=== PATIENT | female | born 1995 | race Caucasian/White ===

== ENCOUNTER → 2021-02-02 15:30 | Outpatient (CLI) | payer SELFPAY ==
[2021-02-07 12:53] LABS: HPV Reflexed? NOT INDICATED
== END ==
PROVIDERS: Visit Provider Student in an Organized Health Care Education/Training Program
DX: Z12.4 Encounter for screening for malignant neoplasm of cervix (principal)
CPT/HCPCS: 88175; G0145

== ENCOUNTER 2021-12-31 15:43 | Outpatient (CLI) | payer OTHER, SELFPAY ==
[2021-12-31 17:38] LABS: Absolute Lymphocyte Count 1.86 X10^3/uL (0.83-4.51); Absolute Neutrophil Count 9.1 X10^3/uL (2.0-7.7); Basophil# 0.02 X10^3/uL; Basophil% 0.2 % (0-1); Eosinophil# 0.02 X10^3/uL; Eosinophils% 0.2 % (0-5); Hematocrit 38.1 % (37-47); Hemoglobin 12.8 g/dL (12.0-15.0); Lymphocyte # 1.86 X10^3/ul (0.83-4.51); Lymphocyte % 15.6 % (19-41); Mean Corp Hgb Conc 33.6 g/dL (32-36); Mean Corpuscular Hgb 28.6 pg (27.0-32.0); Mean Corpuscular Volume 85.2 fL (81-99); Mean Platelet Vol. 10.4 fl (6.2-12.0); Monocyte% 6.7 % (0-10); NRBC Flagged by Analyzer 0 % (0-5); Neutrophil # 9.13 X10^3/uL (2.7-7.7); Neutrophil % 76.8 % (47-70); Platelet Count 243 K/mm3 (150-450); RBC Distribution Width CV 16.3 % (11.6-14.6); RBC Distribution Width SD 51.2 fl (35.1-43.9); Red Blood Count 4.47 M/mm3 (4.2-5.4); White Blood Count 11.9 K/mm3 (4.4-11.0)
[2022-01-01 09:14] LABS: HIV - WCH Non-Reactive (Nonreactive); Hepatitis B Surface Antigen Non-Reactive (Nonreactive); Hepatitis C Antibody Non-Reactive (Nonreactive); Rubella IgG Reactive (Nonreactive); Syphilis Antibodies Non-reactive
[2022-01-02 22:06] LABS: Chlamydia By Nucleic Acid AMP Negative (Negative)
[2022-01-03 16:04] LABS: Gonococcus By Nucleic Acid AMP Negative (Negative)
== END 2021-12-31 23:59 | disposition home or self-care (01) ==
LOC: WOBLAB 15:45
PROVIDERS: Visit Provider Student in an Organized Health Care Education/Training Program
DX: Z34.81 Encounter for supervision of other normal pregnancy, first trimester (principal)
CPT/HCPCS: 36415; 85025; 86703; 86762; 86780; 86803; 87086; 87088; 87340; 87491; 87591

== ENCOUNTER → 2022-04-30 | Outpatient (CLI) | payer OTHER, SELFPAY ==
[2022-04-30 09:23] LABS: Hematocrit 34.2 % (37-47); Hemoglobin 11.5 g/dL (12.0-15.0); Mean Corp Hgb Conc 33.6 g/dL (32-36); Mean Corpuscular Hgb 31.1 pg (27.0-32.0); Mean Corpuscular Volume 92.4 fL (81-99); Mean Platelet Vol. 9.7 fl (6.2-12.0); Platelet Count 183 K/mm3 (150-450); RBC Distribution Width CV 13.2 % (11.6-14.6); RBC Distribution Width SD 44.1 fl (35.1-43.9); White Blood Count 13.6 K/mm3 (4.4-11.0)
[2022-04-30 09:38] LABS: Glucose Challenge Gest 1H 50g 89 mg/dL (70-140)
== END | disposition home or self-care (01) ==
PROVIDERS: Visit Provider Obstetrics & Gynecology
DX: Z34.82 Encounter for supervision of other normal pregnancy, second trimester (principal)
CPT/HCPCS: 36415; 82950; 85027

== ENCOUNTER → 2022-05-15 | Outpatient (CLI) | payer OTHER, SELFPAY | END | disposition home or self-care (01) | PROVIDERS: Visit Provider Obstetrics & Gynecology | DX: N93.9 Abnormal uterine and vaginal bleeding, unspecified (principal); N77.1 Vaginitis, vulvitis and vulvovaginitis in diseases classified elsewhere ==

== ENCOUNTER → 2022-05-27 | Outpatient (CLI) | payer OTHER, SELFPAY | END | disposition home or self-care (01) | PROVIDERS: Visit Provider Student in an Organized Health Care Education/Training Program | DX: N76.0 Acute vaginitis (principal) ==

== ENCOUNTER → 2022-07-22 | Outpatient (CLI) | payer OTHER, BC, SELFPAY | END | disposition home or self-care (01) | LOC: LABSPEC 16:44 | PROVIDERS: Visit Provider Student in an Organized Health Care Education/Training Program | DX: Z36.85 Encounter for antenatal screening for Streptococcus B (principal) | CPT/HCPCS: 87081 ==

== ENCOUNTER 2022-07-29 10:50 | Inpatient (IN) | payer BC, SELFPAY ==
[2022-07-29] VITALS (13 sets, daily range): BP systolic 122–152; BP diastolic 68–86; PULSE 80–112; RESP 16; TEMP 36.3–37.1; O2SAT 96–100; BMI 38.3
[2022-07-29 10:48] LABS: ROM Internal Control Test YES-OK TO RESULT pt. (Internal QC)
[2022-07-29 10:50] LABS: ROM Patient Test POSITIVE (Negative)
[2022-07-29] MEDS: Lactated Ringers 1,000 ML 200 ML IV (11:03)
--- NOTE | 2022-07-29 11:04 | PCM.HP.BLA ---
History and Physical Date of Admission: 07/29/22 Chief complaint: Contractions, leakage of fluid History present illness: 27-year-old at 37 weeks and 4 days with EZRA 08/15/2022 arrives with contractions and leakage of clear fluid at 0800 this morning. Denies headache, visual changes, chest pain, shortness of breath, nausea vomiting, right upper quadrant pain. Patient states good movement. Obstetric history: G1: Current Past medical history: None Medications: vitamin Past surgical history: None Allergies: No known drug allergies Social history: Denies smoking, alcohol use, drug use Family history: Denies history DVT or PE Review of systems: Besides above pertinent positives a full review of systems was performed and found to be negative Physical exam: Vitals: Blood pressure 134/85 pulse 112 temp 97.3 Fahrenheit SPO2 100% on room air General: Normal-appearing no acute distress HEENT: Normocephalic atraumatic no cervical of adenopathy Cardiac/respiratory:No use of accessory muscles, nonlabored breathing Abdomen: Soft, nontender, gravid Pelvic exam: Cervical exam 10/100/+1 Extremities: No peripheral edema normal peripheral pulses Psych: Normal affect normal demeanor nonpressured speech Labs: ROM positive Assessment and plan: 27-year-old G1, P0 at 37 weeks and 4 days with SROM and labor Admit labor and delivery CEFM GBS negative Routine orders
[2022-07-29 11:24] LABS: Absolute Neutrophil Count 15.4 X10^3/uL (2.0-7.7); Basophil# 0.03 X10^3/uL; Basophil% 0.2 % (0-1); Hematocrit 40.3 % (37-47); Lymphocyte % 6.4 % (19-41); Mean Corp Hgb Conc 34.7 g/dL (32-36); Mean Corpuscular Hgb 31.3 pg (27.0-32.0); Mean Platelet Vol. 11.5 fl (6.2-12.0); Monocyte# 0.54 X10^3/uL; Monocyte% 3.1 % (0-10); NRBC Flagged by Analyzer 0 % (0-5); Neutrophil # 15.35 X10^3/uL (2.7-7.7); Neutrophil % 89.3 % (47-70); Platelet Count 195 K/mm3 (150-450); RBC Distribution Width CV 14.2 % (11.6-14.6); RBC Distribution Width SD 46.6 fl (35.1-43.9); Red Blood Count 4.48 M/mm3 (4.2-5.4); White Blood Count 17.2 K/mm3 (4.4-11.0)
[2022-07-29] MEDS: Oxytocin 30 units/NS 500 ml 30 UNITS/500 ML IV.SOLN 334 UNITS IV (11:31)
[2022-07-29] MEDS: Methylergonovine 0.2 MG/ML Ampul IM (11:35)
--- NOTE | 2022-07-29 12:01 | EX.PCM.OBRPT ---
Vaginal Delivery Findings Description of Procedure: Normal spontaneous vaginal delivery of a viable female infant, vertex INDIGO. Head and shoulders delivered with ease. Cord cut and clamped. Baby handed off to patient. Placenta delivered via cord traction and fundal massage. First-degree midline perineal laceration noted, 1% lidocaine injected, and repaired in typical fashion. Short second stage Methergine IM given. EBL 400 cc Apgars 8/9
[2022-07-29] MEDS: Dibucaine 30 GM Tube 1 APPLIC TOPICAL (13:08)
[2022-07-29] MEDS: Benzocaine/Lanolin/Aloe Vera 1 SPRAY EACH TOPICAL (13:08)
[2022-07-29] MEDS: Senna/Docusate Sodium 1 Tablet PO (13:09)
[2022-07-29] MEDS: Ibuprofen 600 MG Tablet PO ×2 (13:10→19:19)
[2022-07-30] MEDS: Ibuprofen 600 MG Tablet PO ×2 (02:00→09:15)
[2022-07-30 04:50] VITALS: BP 101/67; PULSE 91; RESP 16; TEMP 36.5; O2SAT 97
--- NOTE | 2022-07-30 08:00 | PN.OBGYN_ITS ---
Subjective Subjective Feeling well. Slightly more sore on right side compared to left vulva. Working on breast-feeding. Objective Data Objective Data Vital Signs: Vital Signs Temp Pulse Resp BP Pulse Ox O2 Del Method 97.7 F L 91 16 101/67 97 Room Air 07/30/22 04:50 07/30/22 04:50 07/30/22 04:50 07/30/22 04:50 07/30/22 04:50 07/30/22 04:50 Oxygen Delivery Method Room Air Weight: 101.423 kg Body Mass Index (BMI) 38.3 Intake & Output: Intake and Output for Last 24 Hours 07/28/22 07/29/22 07/30/22 23:59 23:59 23:59 Intake Total 1403.33 / 1403.33 Output Total 600 / 600 Balance 803.33 / 803.33 Lab / Micro Data Result Diagrams: 07/29/22 11:05 Labs: Laboratory Results - last 24 hr 07/29/22 10:15: Vag Amniotic Fld Detect POSITIVE H 07/29/22 11:05: WBC 17.2 H, RBC 4.48, Hgb 14.0, Hct 40.3, MCV 90.0, MCH 31.3, MCHC 34.7, RDW Std Deviation 46.6 H, RDW Coeff of Jimmy 14.2, Plt Count 195, MPV 11.5, Immature Gran % (Auto) 1.000 H, Neut % (Auto) 89.3 H, Lymph % (Auto) 6.4 L , [place] % (Auto) 3.1, Eos % (Auto) 0.0, Baso % (Auto) 0.2, Absolute Neuts (auto) 15.4 H, Absolute Lymphs (auto) 1.10, Nucleated RBC % 0 07/29/22 11:05: Blood Type A POSITIVE, Antibody Screen NEGATIVE Physical Exam Const alert, oriented x3 and no apparent distress HEENT normocephalic Head and Scalp: atraumatic Neck full ROM Resp normal respiratory effort Cardio regular rate GI normal to inspection, nondistended, normoactive bowel sounds GI Narrative: Uterus 2 cm below umbilicus Narrative: Labia slightly more swollen on right than left. No evidence of hematoma. Minimal bleeding on pad. Back/Spine normal ROM Extremity normal to inspection Extremity Narrative: Minimal pedal edema Neuro no focal motor deficits and no sensory deficits noted Psych mental status grossly normal and affect normal Assessment & Plan (1) Vaginal delivery: PLAN: day 1 status post . Breast-feeding. Home today.
--- NOTE | 2022-07-30 08:02 | DCINST_ITS ---
Discharge Instructions Diet Discharge Diet: No restrictions Activity Discharge Activity: Return to Normal Activity and May Shower May resume sexual activity in: 4-6 weeks Weight Bearing Status: Weight bearing as tolerated Lifting Restrictions: No greater than 25 pounds Dressing / Incision Call your doctor if you observe: Fever of 101 or Higher, Change in Color, Inability to urinate, Using more than 1 pad per hour, Shortness of breath, Dizziness, Swelling in the ankles, Chest pain and Calf discomfort Follow Up Care Please Follow Up With: Huma Castillo DO When: 4-6w visit Test Results: Test results from this visit will be discussed in further detail at your follow- up appointment, if applicable. Discharge Plan Admission Admit Date/Time: 07/29/22 10:50 Primary Reason for Your Visit: Vaginal delivery Attending Provider: Erlin Castillo Discharge Orders/Prescriptions Prescriptions: No Action Prenatabs FA 1 tab PO.IVFORM DAILY Disposition Disposition (needs filled in before D/C Order can be placed): Home, Self Care
[2022-07-30 08:37] VITALS: BP 118/73; PULSE 95; RESP 16; TEMP 36.7; O2SAT 97
--- NOTE | 2022-07-30 09:10 | NURSING ---
this nurse agrees with VS assessment of student nurse.
[2022-07-30 11:56] VITALS: BP 145/79; PULSE 95; RESP 16; TEMP 36.8; O2SAT 99
== END 2022-07-30 14:50 | disposition home or self-care (01) | DRG 807 ==
LOC: WPOUT 10:58 → WP 10:58
PROVIDERS: Student in an Organized Health Care Education/Training Program; Admitting Provider Obstetrics & Gynecology; Referring Provider Obstetrics & Gynecology; Visit Provider Obstetrics & Gynecology
DX: O70.0 First degree perineal laceration during delivery (principal); Z37.0 Single live birth; Z3A.37 37 weeks gestation of pregnancy
CPT/HCPCS: 59025; 59050; 84112; 85025; 86850; 86900; 86901; 99218; J7120; G0378

== ENCOUNTER 2024-11-24 15:12 | Inpatient (IN) | payer BC, SELFPAY ==
[2024-11-24] VITALS (26 sets, daily range): BP systolic 116–140; BP diastolic 59–75; PULSE 67–103; RESP 15–17; TEMP 36.3–37; O2SAT 90–100; BMI 38.2
[2024-11-24] MEDS: Lactated Ringers 1,000 ML 999 ML IV (15:15)
[2024-11-24 15:27] LABS: Absolute Neutrophil Count 11.3 X10^3/uL (2.0-7.7); Basophil# 0.04 X10^3/uL; Basophil% 0.3 % (0-1); Eosinophil# 0.01 X10^3/uL; Eosinophils% 0.1 % (0-5); Hematocrit 37.6 % (37-47); Hemoglobin 12.8 g/dL (12.0-15.0); Lymphocyte % 15.3 % (19-41); Mean Corpuscular Hgb 31.1 pg (27.0-32.0); Mean Corpuscular Volume 91.3 fL (81-99); Mean Platelet Vol. 10.3 fl (6.2-12.0); Monocyte# 0.73 X10^3/uL; Monocyte% 5.1 % (0-10); NRBC Flagged by Analyzer 0 % (0-5); Neutrophil # 11.31 X10^3/uL (2.7-7.7); Neutrophil % 78.6 % (47-70); Platelet Count 201 K/mm3 (150-450); RBC Distribution Width CV 13.3 % (11.6-14.6); RBC Distribution Width SD 44.6 fl (35.1-43.9); Red Blood Count 4.12 M/mm3 (4.2-5.4); White Blood Count 14.4 K/mm3 (4.4-11.0)
[2024-11-24] MEDS: Oxytocin 10 UNITS/ML Vial IM (15:39)
[2024-11-24] MEDS: Oxytocin 15 Units/NS 250ml 15 UNITS/250 ML IV.SOLN 83 UNITS IV (15:40)
--- NOTE | 2024-11-24 16:00 | PCM.HP.OB ---
HPI - General General Date of Admission: 11/24/24 Date of Service: 11/24/24 Chief Complaint: contractions and SROM HPI Narrative BUBBA VO, is a 29 F who presents c/ Ctxs since early this am an dSROM 1 pm. Maternal Data Information Final EZRA: 12/10/24 Gestational age: 37 5/7 [facility] Medical History (Updated 11/24/24 @ 16:[address] Fidleina Jaquez MD) Vaginal delivery Home Medications ?Medication ?Instructions ?Recorded ?Last Taken ?Type Prenatabs FA 1 tab PO.IVFORM DAILY 07/29/22 Unknown History Allergy/AdvReac Type Severity Reaction Status Date / Time No Known Allergies Allergy Verified 01/02/24 14:28 Social History (System 01/02/24 @ 14:28 by Bree Vivas) Smoking Status: Never smoker History Elective abortions Hx Para 0 Spontaneous abortions Hx # Term Pregnancies Ectopic pregnancies Hx # Pregnancies Multiple births # of living children Vital Signs Vital Signs Vital Signs: 11/24/24 15:24 11/24/24 15:24 Temperature 98.6 F Temperature Source Tympanic Weight Weight: 97.976 kg Body Mass Index (BMI) 38.2 Physical Exam Const alert and no apparent distress General Appearance: cooperative HEENT normocephalic Resp normal respiratory effort Cardio regular rate GI soft to palpation GI Narrative: gravid, nontender, appropriate for gestational age Extremity no calf tenderness General Extremity: edema Skin no wounds Rashes: No rashes noted Psych activity/motor behavior normal Labs Labs Labs: Blood Type A POSITIVE Antibody Screen NEGATIVE Hct 37.6 % (37-47) Hgb 12.8 g/dL (12.0-15.0) Syphilis Total Ab Non-reactive Rubella IgG Antibody Reactive (Nonreactive) Hep Bs Antigen Non-Reactive (Nonreactive) Hepatitis C Antibody Non-Reactive (Nonreactive) Chlamydia DNA (RALF) Negative (Negative) N.gonorrhoeae DNA (RALF) Negative (Negative) HIV 1&2 Antibody Non-Reactive (Nonreactive) Glucose 1 Hr 50 gm 89 mg/dL (70-140) Rhogam given: No Miscellaneous Test Assessment & Plan (1) 37 weeks gestation of : (2) Spontaneous onset of labor:
--- NOTE | 2024-11-24 16:01 | EX.PCM.OBVAG ---
Assessment & Plan (1) Spontaneous onset of labor: (2) 37 weeks gestation of : Maternal Data Information Final EZRA: 12/10/24 Gestational age: 37 6/7 Vaginal Delivery Maternal Presentation Maternal Presentation: Active Labor Vaginal Delivery Information Procedure Performed: Spontaneous Vaginal Delivery Surgeon/Practitioner: Fidelina Jaquez Date of Procedure: 11/24/24 Pre-Procedure Diagnosis: labor Post-Procedure Diagnosis: same Type of anesthesia: Local with 1% Lidocaine (10 cc) Estimated Blood Loss: 300 Time of Delivery: 15:37 Findings Description of procedure: A vigorous female was delivered INDIGO over a second-degree perineal laceration. The remainder the was delivered with maternal pushing and gentle traction only in less than 15 seconds. The Pitocin infusion was initiated for active management of the third stage. The cord was clamped and cut after cord pulsations ceased. The infant was attended to by the waiting nursing staff. The placenta was delivered spontaneously and intact. The cervix and vagina were intact. 10 cc of 1% Xylocaine were used to anesthetize the region. The second-degree perineal laceration was repaired with 3-0 Vicryl suture in a running standard fashion. Sponge and needle counts were correct. A vaginal sweep was completed by me. Presentation: INDIGO Amniotic Membrane Rupture Type: Spontaneous Amniotic Fluid Description: Clear Placental Delivery Description: Spontaneous Placenta Disposition: [facility] Specimen collected: No Cord Vessel Description: 3 Vessels Cord Entanglement: None A Gender: Female ([place]) (1 minute): 9 (5 minute): 9 Delayed Cord Clamping: Yes Math Tutor catalogue and special products manager: No Post Vaginal Deli Medications given after delivery: IV Pitocin Episiotomy Description: None Laceration: 2nd degree Complication Complications: No
[2024-11-24 16:17] LABS: Syphilis Antibodies Non-reactive
[2024-11-25 03:53] VITALS: BP 125/58; PULSE 80; PULSE 84; RESP 17; TEMP 36.3; O2SAT 95; O2SAT 96
[2024-11-25 09:45] VITALS: BP 127/78; PULSE 96
[2024-11-25 09:46] VITALS: BP 127/78; PULSE 96; RESP 16; TEMP 35.9
[2024-11-25] MEDS: Ibuprofen 600 MG Tablet PO (10:11)
[2024-11-25] MEDS: Benzocaine/Lanolin/Aloe Vera 85 GM Spray 1 SPRAY TOPICAL (11:10)
--- NOTE | 2024-11-25 11:31 | PCM.PROGNOTE ---
Subjective Subjective patient seen at bedside, doing well. Patient reports good pain control. lochia mild. Objective Data Objective Data Vital Signs: Vital Signs Temp Pulse Resp BP Pulse Ox O2 Del Method 96.6 F L 96 16 127/78 H 95 Room Air 11/25/24 09:46 11/25/24 09:46 11/25/24 09:46 11/25/24 09:46 11/25/24 03:53 11/25/24 03:53 Oxygen Delivery Method Room Air Weight: 97.976 kg Body Mass Index (BMI) 38.2 Intake & Output: Intake and Output for Last 24 Hours 11/23/24 11/24/24 11/25/24 23:59 23:59 23:59 Intake Total 1000 / 1000 Output Total 300 / 300 Balance 700 / 700 Lab / Micro Data 11/24/24 15:15 Labs: Laboratory Results - last 24 hr 11/24/24 15:15: WBC 14.4 H, RBC 4.12 L, Hgb 12.8, Hct 37.6, MCV 91.3, MCH 31.1, MCHC 34.0, RDW Std Deviation 44.6 H, RDW Coeff of Jimmy 13.3, Plt Count 201, MPV 10.3, Immature Gran % (Auto) 0.600, Neut % (Auto) 78.6 H, Lymph % (Auto) 15.3 L, [place] % (Auto) 5.1, Eos % (Auto) 0.1, Baso % (Auto) 0.3, Absolute Neuts (auto) 11.3 H, Absolute Lymphs (auto) 2.20, Nucleated RBC % 0, Syphilis Total Ab Non-reactive, Blood Type A POSITIVE, Antibody Screen NEGATIVE Physical Exam Narrative fundus firm Const alert and oriented x3 General Appearance: cooperative HEENT normocephalic Neck General: normal visual inspection GI soft to palpation and non-distended GI Narrative: Fundus firm Extremity normal to inspection and no calf tenderness Skin no rashes or lesions noted Neuro oriented x3 and CN's II-XII intact bilaterally Psych mental status grossly normal Assessment & Plan Assessment/Plan (1) Vaginal delivery: PLAN: Plan PPD# 1 , Doing well Routine care pain mgmt ambulation dc home today time spent face to face with patient on day of discharge was <30min
--- NOTE | 2024-11-25 12:15 | DCINST_ITS ---
Discharge Instructions Diet Discharge Diet: No restrictions DC O2, CPAP, BIPAP needs Home O2 Discharge instructions: No Dressing / Incision May resume sexual activity in: 6-8 weeks Dressing / Incision Call your doctor if you observe: Fever of 101 or Higher, Inability to urinate, Using more than 1 pad per hour and Uncontrolled pain Follow Up Care Please Follow Up With: Fidelina Jaquez MD When: 1-2 weeks post and again at 6 weeks post . [phone] Test Results: Test results from this visit will be discussed in further detail at your follow- up appointment, if applicable. Discharge Plan Admission Admit Date/Time: 11/24/24 15:12 Attending Provider: Fidelina Jaquez Primary Care Provider: Care Physician,Alyson Primary Discharge Orders/Prescriptions Prescriptions: New acetaminophen 500 mg Tablet 1,000 mg PO Q6H PRN PRN (Reason: Pain 1-10 Or Fever) Qty: 0 0RF ibuprofen 600 mg Tablet 600 mg PO Q6H PRN PRN (Reason: Pain Score 1-10) Qty: 0 0RF Discontinued Prenatabs FA 1 tab PO.IVFORM DAILY Referrals / Follow Up: Care Physician,No Primary [Primary Care Provider] - Disposition Disposition (needs filled in before D/C Order can be placed): Home, Self Care
[2024-11-25 12:39] VITALS: BP 130/70; PULSE 100; RESP 16; TEMP 36
--- NOTE | 2024-11-29 15:33 | NURSING ---
Spoke with the patient for the follow-up phone call. The patient states she is feeling well, her bleeding is minimal, and denies any pain. The patient denies any headaches or visual disturbances. The patient states the is nursing well and denies a follow-up at this time. The patient denies any questions.
== END 2024-11-25 17:52 | disposition home or self-care (01) | DRG 807 ==
LOC: WPOUT 15:38 → WP 15:38
PROVIDERS: Admitting Provider Obstetrics & Gynecology; Referring Provider Obstetrics & Gynecology; Visit Provider Obstetrics & Gynecology
DX: O42.02 Full-term premature rupture of membranes, onset of labor within 24 hours of rupture (principal); Z37.0 Single live birth; O70.1 Second degree perineal laceration during delivery; Z3A.37 37 weeks gestation of pregnancy
CPT/HCPCS: 59050; 85025; 86780; 86850; 86900; 86901; 99221; G0378

== ENCOUNTER 2025-06-30 19:24 | Inpatient (IN) | payer BC, SELFPAY ==
[2025-06-30 19:11] VITALS: BMI 34.4
[2025-06-30 20:05] VITALS: BMI 34.4
[2025-06-30 20:56] LABS: Hematocrit 38.2 % (37-47); Hemoglobin 12.9 g/dL (12.0-15.0); Immature Granulocytes Count 0.050 X10^3/uL (0.0-0.0); Mean Corp Hgb Conc 33.8 g/dL (32-36); Mean Corpuscular Volume 88.2 fL (81-99); Mean Platelet Vol. 9.9 fl (6.2-12.0); NRBC Flagged by Analyzer 0 % (0-5); Platelet Count 214 K/mm3 (150-450); RBC Distribution Width CV 13.7 % (11.6-14.6); RBC Distribution Width SD 44.7 fl (35.1-43.9); Red Blood Count 4.33 M/mm3 (4.2-5.4); White Blood Count 10.7 K/mm3 (4.4-11.0)
[2025-06-30 21:08] LABS: Fibrinogen 425 mg/dl (203-444); Partial Thromboplast Time 26.3 Seconds (24.1-36.2); Prothrombin Time (Protime)PT. 11.8 SECONDS (11.7-14.9)
[2025-06-30 21:21] VITALS: RESP 16; TEMP 36.7
[2025-06-30 21:22] VITALS: BP 127/65; PULSE 86
--- NOTE | 2025-06-30 21:30 | HP.PCM.OB_ITS ---
HPI - General General Date of Admission: 06/30/25 Date of Service: 06/30/25 Chief Complaint: IOL HPI Narrative BUBBA VO, is a 30 F who presents for a scheduled IOL for IUFD. She is tearful but offers no complaints at this time. She is having no pain, vb, lof. Maternal Data Information Final EZRA: 12/09/25 [facility] Medical History (Updated 06/30/25 @ 21:[address] Nalini Garcia, DO) Vaginal delivery Allergy/AdvReac Type Severity Reaction Status Date / Time No Known Allergies Allergy Verified 06/30/25 20:03 Social History (System 01/02/24 @ 14:28 by Bree Vivas) Smoking Status: Never smoker History Elective abortions Hx Para 2 Spontaneous abortions Hx # Term Pregnancies Ectopic pregnancies Hx # Pregnancies Multiple births # of living children Addt'l History: Two prior term vaginal deliveries Vital Signs Vital Signs Vital Signs: 06/30/25 21:21 06/30/25 21:21 06/30/25 21:21 Temperature 98.0 F Temperature Source Temporal Pulse Rate Respiratory Rate 16 Blood Pressure BP Systolic BP Diastolic 06/30/25 21:22 06/30/25 21:22 Temperature Temperature Source Pulse Rate 86 Respiratory Rate Blood Pressure 127/65 H BP Systolic 127 BP Diastolic 65 Weight Weight: 200 lb 9.6 oz Body Mass Index (BMI) 34.4 Physical Exam Const alert and no apparent distress General Appearance: comfortable Narrative: Normal external genitalia. Normal vagina. Cervix with [address] Labs Labs Labs: Blood Type A POSITIVE Antibody Screen NEGATIVE Hct 38.2 % (37-47) Hgb 12.9 g/dL (12.0-15.0) Syphilis Total Ab Non-reactive Rubella IgG Antibody Reactive (Nonreactive) Hep Bs Antigen Non-Reactive (Nonreactive) Hepatitis C Antibody Non-Reactive (Nonreactive) Chlamydia DNA (RALF) Negative (Negative) N.gonorrhoeae DNA (RALF) Negative (Negative) HIV 1&2 Antibody Non-Reactive (Nonreactive) Glucose 1 Hr 50 gm 89 mg/dL (70-140) Rhogam given: No Miscellaneous Test Assessment & Plan (1) demise: PLAN: Patient presents for scheduled IOL for IUFD noted on ultrasound at 16 week gestation with anhydramnios. FL measuring 15w3d. Discussed plan of care and process of induction with patient and her partner at bedside. Questions answered. Discussed possible need for surgical intervention. Patient was offered a D&E, as well as delivery at a tertiary care center in the office, both of which she declined. She was seen in the office this morning for placement of 4 laminaria. The patient had a picture on her phone showing 2 laminaria present that fell out prior to arrival today. The remaining 2 laminaria were removed easily without incident using a ring forcep. She understands r/b/a to induction and plans to proceed. Discussed pain control options. Discussed possible D&C for retained placenta. Discussed expectations with delivery. Labs collected on admission. Will plan for Cytotec 400 mcg q 4 hours.
[2025-06-30 21:35] LABS: Syphilis Antibodies Nonreactive (Nonreactive)
[2025-07-01] VITALS (10 sets, daily range): BP systolic 111–127; BP diastolic 59–83; PULSE 80–189; RESP 16–18; TEMP 36.1–36.7; O2SAT 84–98
[2025-07-01] MEDS: fentaNYL 100 MCG/2 ML Ampul IV (00:31)
--- NOTE | 2025-07-01 02:36 | EX.PCM.OBVAG ---
Assessment & Plan (1) demise: Vaginal Delivery Maternal Presentation Maternal Presentation: Medically Indicated Induction Type of Induction: Cytotec Medical Reason for Induction: demise Vaginal Delivery Information Procedure Performed: Spontaneous Vaginal Delivery Surgeon/Practitioner: Nalini Garcia Date of Procedure: 07/01/25 Pre-Procedure Diagnosis: 16 week gestation IUFD Post-Procedure Diagnosis: As above Type of anesthesia: None Estimated Blood Loss: 250 mL Findings Description of procedure: Called by RN that patient had passed fetus in the bed followed by a blood clot. The RN was instructed to give 10 of IM Pitocin. I was present at bedside. The umbilical cord was clamped and cut. Upon inspection the demised fetus appeared to be a normal appearing male that was edematous. Gross inspected was limited given the edema. The placenta delivered in two parts spontaneously. The patients bleeding was minimal. The patient was tearfuly grievingl and holding baby. Procedure findings: Edematous demised male fetus Placental Delivery Description: Spontaneous Infant A Gender: Male Post Vaginal Deli Medications given after delivery: IM Pitocin Episiotomy Description: None Laceration: None Complication Complications: No
--- NOTE | 2025-07-01 03:12 | PN.OBGYN_ITS ---
Subjective Subjective At bedside to check on patient. She states her bleeding has spotted. Pain is minimal. Objective Data Objective Data Vital Signs: Vital Signs Temp Pulse Resp BP Pulse Ox 97.4 F L 102 H 18 114/73 97 07/01/25 01:32 07/01/25 03:11 07/01/25 01:32 07/01/25 03:11 07/01/25 03:11 Weight: 200 lb 9.6 oz Body Mass Index (BMI) 34.4 Intake & Output: Intake and Output for Last 24 Hours 06/29/25 06/30/25 07/01/25 23:59 23:59 23:59 Output Total 250 / 250 Balance -250 / -250 Lab / Micro Data 06/30/25 20:00 Labs: Laboratory Results - last 24 hr 06/30/25 20:00: WBC 10.7, RBC 4.33, Hgb 12.9, Hct 38.2, MCV 88.2, MCH 29.8, MCHC 33.8, RDW Std Deviation 44.7 H, RDW Coeff of Jimmy 13.7, Plt Count 214, MPV 9.9, Immature Gran % (Auto) 0.500, Neut % (Auto) 70.1 H, Lymph % (Auto) 21.7, [place] % (Auto) 6.8, Eos % (Auto) 0.7, Baso % (Auto) 0.2, Absolute Neuts (auto) 7.5, Absolute Lymphs (auto) 2.33, Nucleated RBC % 0, PT 11.8, INR 0.9, APTT 26.3, Fibrinogen 425, Syphilis Total Ab Nonreactive, Blood Type A POSITIVE, Antibody Screen NEGATIVE Physical Exam Const alert and no apparent distress Constitutional Narrative: Tearful General Appearance: comfortable Resp normal respiratory effort GI soft to palpation and non-tender Narrative: No active bleeding noted Assessment & Plan (1) demise: PLAN: Patient's bleeding is scant and pain minimal at this time. Bedside TAUS performed showing an endometrial stripe with some blood present that is moving on ultrasound, no increased vascularity, and EMS measuring 1.5 cm in thickness. There is no obvious retained pieces of placenta. Based on patient's symptoms, bedside ultrasound, and inspection of placenta, no retained placenta or membranes are suspected. Patient declines further testing of the baby at this time. She does not want [facility] to [facility]. She requests a X ray if possible. Monitor patient for 8 hours after delivery. If bleeding and pain ok, she is ok for d/c home if she desires. (2) Vaginal delivery:
--- NOTE | 2025-07-01 03:18 | DCINST_ITS ---
Discharge Instructions DC O2, CPAP, BIPAP needs Home O2 Discharge instructions: No Dressing / Incision Discharge Activity: May Drive and May Shower May resume sexual activity in: 6 weeks (nothing in the vagina) Ice area for (Minutes): 15 Weight Bearing Status: Weight bearing as tolerated Lifting Restrictions: none Dressing / Incision Call your doctor if you observe: Fever of 101 or Higher, Using more than 1 pad per hour, Shortness of breath, Dizziness, Chest pain, Increased palpitations (irregular heartbeat), Calf discomfort and Uncontrolled pain Follow Up Care Please Follow Up With: Nalini Garcia DO When: 1 week 6 weeks Test Results: Test results from this visit will be discussed in further detail at your follow- up appointment, if applicable. Discharge Plan Admission Admit Date/Time: 06/30/25 19:24 Attending Provider: Nalini Garcia Primary Care Provider: Care Physician,Alyson Primary Discharge Orders/Prescriptions Referrals / Follow Up: Care Physician,No Primary [Primary Care Provider] - Disposition Disposition (needs filled in before D/C Order can be placed): Home, Self Care
== END 2025-07-01 10:00 | disposition home or self-care (01) | DRG 807 ==
PROVIDERS: Admitting Provider Obstetrics & Gynecology; Referring Provider Obstetrics & Gynecology; Visit Provider Obstetrics & Gynecology
DX: O02.1 Missed abortion (principal); Z37.1 Single stillbirth
CPT/HCPCS: 85025; 85384; 85610; 85730; 86780; 86850; 86900; 86901; 99221; G0378